=== PATIENT | male | born 1995 | race Two or more races ===

== ENCOUNTER 2017-11-02 19:26 | Emergency (ER) | payer MEDICAID ==
[~2017-11-02] VITALS: Ht 167.6 cm; Wt 49.9 kg
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
--- NOTE | 2017-11-02 20:35 | NUR ---
CALLED (PCP), TRANSFERRED CALL TO .
--- NOTE | 2017-11-02 20:38 | NUR ---
MARYBETH PENA, REY PULLIAM NP RAILROAD MECHANIC
--- NOTE | 2017-11-02 20:38 | NUR ---
PER DR. NUNO GIVE PT TO [facility]
--- NOTE | 2017-11-02 20:50 | NUR ---
PT REFUSED IV INSERTION AND/OR BLOOD DRAW. MADE AWARE.
--- NOTE | 2017-11-02 20:56 | NUR ---
TELE 308-2 FOR PNEUMOTHORAX, REY PULLIAM PROCESS IMPROVEMENT SPECIALIST ADMITTING
[2017-11-02] MEDS ORDERED: ONDANSETRON HCL/PF 4 MG/2 ML VIAL IVP PRN (21:00)
[2017-11-02] MEDS ORDERED: ACETAMINOPHEN 325 MG TABLET PO PRN (21:00)
[2017-11-02] MEDS ORDERED: HYDROCODONE/APAP 5/325MG 1 EACH TABLET PO PRN (21:00)
[2017-11-02 21:36] VITALS: BP 103/63
--- NOTE | 2017-11-02 21:58 | NUR ---
Patient does not wish to proceed with medical care recommended by Dr. Owens. Patient given information related to possible complications, up to and including , which could occur as a result of leaving the hospital at this time. Patient verbalizes understanding of risks involved due to leaving against medical advice. Patient has signed AMA form.
[2017-11-03] MEDS ORDERED: PANTOPRAZOLE 40 MG TABLET.DR PO SCH (09:00)
== END 2017-11-02 22:00 | disposition left against medical advice (07) ==
LOC: ER 19:30
DX: J93.83 Other pneumothorax (principal)
CPT/HCPCS: 71045-TC; A4606; Z7610

== ENCOUNTER 2017-11-15 23:20 | Emergency (ER) | payer MEDICAID ==
[~2017-11-15] VITALS: Ht 170.2 cm; Wt 49.0 kg
[2017-11-15 23:32] VITALS: BP 113/85
[2017-11-15] MEDS ORDERED: NYSTATIN (PYXIS) 500,000 UNIT/5 ML ORAL.SUSP PO STA (23:53)
[2017-11-16] MEDS ORDERED: NYSTATIN (PYXIS) 500,000 UNIT/5 ML ORAL.SUSP ONE (00:22)
--- NOTE | 2017-11-16 00:28 | NUR ---
RECEIVED MED FROM [facility] TO ADMINISTER IN ER PER MD'S ORDERS. PT HAS REFUSED ALL OTHER TREATMENTS OFFERED BY ER MD. PT ONLY OKAY WITH BEING TREATED FOR ORAL PAIN. AWARE.
== END 2017-11-16 00:31 | disposition home or self-care (01) ==
LOC: ER 23:22
DX: B37.0 Candidal stomatitis (principal); R55 Syncope and collapse; G89.18 Other acute postprocedural pain; Z98.890 Other specified postprocedural states
CPT/HCPCS: A4606; Z7610

== ENCOUNTER 2018-08-05 20:09 | Emergency (ER) | payer MEDICAID ==
[~2018-08-05] VITALS: Ht 167.6 cm; Wt 45.4 kg
[2018-08-05 20:37] VITALS: BP 132/82
[2018-08-05] MEDS ORDERED: LIDOCAINE /MPF 1% VIAL 5 ML VIAL IJ ONE (21:00)
[2018-08-05] MEDS ORDERED: LIDOCAINE /MPF 1% VIAL 5 ML VIAL ONE (21:01)
== END 2018-08-05 21:22 | disposition home or self-care (01) ==
LOC: ER 20:27
DX: L03.032 Cellulitis of left toe (principal); Z98.890 Other specified postprocedural states
CPT/HCPCS: 99283; A4606; A6402 ×2; Z7610; J3490

== ENCOUNTER 2018-09-09 02:01 | Emergency (ER) | payer MEDICAID, OTHER ==
[~2018-09-09] VITALS: Ht 167.6 cm; Wt 45.4 kg
[2018-09-09 02:13] VITALS: BP 144/66
[2018-09-09] MEDS ORDERED: HYDROCODONE/APAP 10/325MG 1 EA TABLET ONE ×2 (03:13→03:25)
[2018-09-09] MEDS ORDERED: ONDANSETRON 4 MG TAB.RAPDIS ONE (03:14)
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
[2018-09-09] MEDS ORDERED: ONDANSETRON 4 MG TAB.RAPDIS SL ONE (03:30)
[2018-09-09] MEDS ORDERED: HYDROCODONE/APAP 10/325MG 1 EA TABLET PO ONE (03:30)
--- NOTE | 2018-09-09 03:33 | NUR ---
PT MEDICATED ORDERED.
[2018-09-09] MEDS ORDERED: BACI/NEOM/POLY B OINT PKT 1 UDPKT PACKET TP ONE (04:00)
== END 2018-09-09 04:12 | disposition home or self-care (01) ==
LOC: ER 02:07
DX: G89.18 Other acute postprocedural pain (principal); Z98.890 Other specified postprocedural states
CPT/HCPCS: 99283; A4606; Q0162

== ENCOUNTER 2018-09-28 21:38 | Emergency (ER) | payer MEDICAID ==
[~2018-09-28] VITALS: Ht 167.6 cm; Wt 49.9 kg
--- NOTE | 2018-09-28 22:18 | NUR ---
BIBSELF C/O LEFT SIDE CP X1 DAY. -N/V/D,-HEADACHE,-SOB. HAD SIMILAR EXPERIENCE PREVIOUSLY. AOX4, AMB, VSS, RR EVEN AND UNLABORED ON RA. SKIN WARM, DRY, INTACT. NO ACUTE DISTRESS NOTED. FAMILY AT BEDSIDE. READY FOR EVAL.
--- NOTE | 2018-09-28 23:57 | NUR ---
CALLED [facility] TO HAVE XRAY READ
--- NOTE | 2018-09-29 01:05 | NUR ---
Patient discharged to home in stable condition. Written and verbal after care instructions given. Patient verbalizes understanding of instruction. Pt ambulatory with a steady gait
[2018-09-29 01:11] VITALS: BP 114/82
== END 2018-09-29 01:11 | disposition home or self-care (01) ==
LOC: ER 21:40
DX: R07.89 Other chest pain (principal); Z98.890 Other specified postprocedural states; Z87.891 Personal history of nicotine dependence
CPT/HCPCS: 71046

== ENCOUNTER 2023-05-05 13:20 | Emergency (ER) | payer MEDICAID ==
[~2023-05-05] VITALS: Ht 167.6 cm; Wt 53.1 kg
[2023-05-05 14:56] LABS: BASOPHILS % (AUTO) 0.4 % (0.0-2.0); EOSINOPHILS % (AUTO) 0.2 % (0.0-6.0); HEMATOCRIT 44 % (39-51); HEMOGLOBIN 14.8 g/dL (13.5-17.5); LYMPHOCYTES % (AUTO) 23.1 % (20.0-44.0); MEAN CORPUSCULAR HEMOGLOBIN 28 PG (26.0-33.0); MEAN CORPUSCULAR HGB CONC 34 g/dl (31.0-36.0); MEAN CORPUSCULAR VOLUME 84 fL (80-96); MONOCYTES # (AUTO) 0.5 K/uL (0.1-1.30); MONOCYTES % (AUTO) 5.5 % (2.0-12.0); NEUTROPHILS # (AUTO) 6.2 K/uL (1.8-8.9); NEUTROPHILS % (AUTO) 70.8 % (43.0-81.0); PLATELET COUNT (AUTO) 259 K/uL (150-450); RED BLOOD CELL COUNT(AUTO) 5.27 MIL/uL (4.5-6.0); RED CELL DISTRIBUTION WIDTH 12.9 % (11.5-15.0); WHITE BLOOD COUNT (AUTO) 8.8 K/uL (4.3-11.0)
[2023-05-05 15:03] LABS: CALCIUM, SERUM 9.2 mg/dL (8.5-10.1); CARBON DIOXIDE 26 mmol/L (21-32); CHLORIDE 101 mmol/L (98-107); CREATININE 1.2 mg/dL (0.6-1.3); GLUCOSE 92 mg/dL (74-106); POTASSIUM 3.7 mmol/L (3.5-5.1); SODIUM SERUM 137 mmol/L (136-145); UREA NITROGEN, BLOOD 13 mg/dL (7-18)
[2023-05-05 16:24] VITALS: BP 122/78; TEMP 98.2; O2SAT 98
== END 2023-05-05 16:25 | disposition home or self-care (01) ==
LOC: ER 13:24
DX: R07.89 Other chest pain (principal); Z98.890 Other specified postprocedural states
CPT/HCPCS: 36415; 71045-TC; 80048-TC; 84484-TC; 85025-TC

== ENCOUNTER 2023-10-28 23:49 | Emergency (ER) | payer MEDICAID ==
[~2023-10-28] VITALS: Ht 167.6 cm; Wt 45.4 kg
[2023-10-29 01:18] LABS: BASOPHILS # (AUTO) 0.1 K/uL (0.0-0.2); BASOPHILS % (AUTO) 0.6 % (0.0-2.0); EOSINOPHILS # (AUTO) 0.1 K/uL (0.0-0.7); EOSINOPHILS % (AUTO) 0.6 % (0.0-6.0); HEMATOCRIT 45 % (39-51); HEMOGLOBIN 14.8 g/dL (13.5-17.5); MEAN CORPUSCULAR HEMOGLOBIN 28 PG (26.0-33.0); MEAN CORPUSCULAR HGB CONC 33 g/dl (31.0-36.0); MEAN CORPUSCULAR VOLUME 85 fL (80-96); MONOCYTES # (AUTO) 0.6 K/uL (0.1-1.30); MONOCYTES % (AUTO) 5.6 % (2.0-12.0); NEUTROPHILS # (AUTO) 6.3 K/uL (1.8-8.9); NEUTROPHILS % (AUTO) 63.2 % (43.0-81.0); PLATELET COUNT (AUTO) 337 K/uL (150-450); RED BLOOD CELL COUNT(AUTO) 5.26 MIL/uL (4.5-6.0); RED CELL DISTRIBUTION WIDTH 13.4 % (11.5-15.0)
[2023-10-29 01:36] LABS: CALCIUM, SERUM 9.4 mg/dL (8.5-10.1); CARBON DIOXIDE 29 mmol/L (21-32); CHLORIDE 103 mmol/L (98-107); CREATININE 1.2 mg/dL (0.6-1.3); GLUCOSE 85 mg/dL (74-106); POTASSIUM 3.9 mmol/L (3.5-5.1); SODIUM SERUM 138 mmol/L (136-145); UREA NITROGEN, BLOOD 14 mg/dL (7-18)
[2023-10-29 01:46] LABS: ALANINE AMINOTRANSFERASE 28 U/L (12-78); ALBUMIN 4.3 g/dL (3.4-5.0); ALKALINE PHOSPHATASE 58 U/L (46-116); ASPARTATE AMINOTRANSFERASE 17 U/L (15-37); BILIRUBIN,DIRECT 0.1 mg/dL (0.0-0.2); BILIRUBIN,TOTAL 0.4 mg/dL (0.2-1.0); TOTAL PROTEIN, SERUM 8.2 g/dL (6.4-8.2)
[2023-10-29 01:57] LABS: INR 0.97 (0.91-1.10); PARTIAL THROMBOPLASTIN TIME 23.3 SEC (24.3-34.3); PROTHROMBIN TIME 10.3 SECS (9.2-11.1)
[2023-10-29 03:08] VITALS: BP 113/66; TEMP 98.1; O2SAT 100
== END 2023-10-29 05:47 | disposition home or self-care (01) ==
LOC: ER 23:50
DX: R07.9 Chest pain, unspecified (principal); Z87.09 Personal history of other diseases of the respiratory system
CPT/HCPCS: 36415; 71045-TC; 80048-TC; 80076-TC; 84484-TC; 85025-TC; 85730-TC

== ENCOUNTER 2023-12-22 22:04 | Emergency (ER) | payer MEDICAID ==
[~2023-12-22] VITALS: Ht 167.6 cm; Wt 59.0 kg
[2023-12-22 23:16] VITALS: BP 140/87; TEMP 98.8
[2023-12-23] MEDS ORDERED: KETO10TA2 PO
[2023-12-23 00:22] VITALS: O2SAT 99
== END 2023-12-23 00:23 | disposition home or self-care (01) ==
LOC: ER 22:05
DX: R09.1 Pleurisy (principal)
CPT/HCPCS: 71100-TC

== ENCOUNTER 2024-01-21 19:55 | Emergency (ER) | payer MEDICAID ==
[~2024-01-21] VITALS: Ht 167.6 cm; Wt 47.6 kg
[~2024-01-21 19:55] MED LIST: KETO10TA2 PO
[2024-01-21 21:24] VITALS: BP 125/75; TEMP 98; O2SAT 98
== END 2024-01-21 22:02 | disposition home or self-care (01) ==
LOC: ER 20:07
DX: R07.9 Chest pain, unspecified (principal); Z87.891 Personal history of nicotine dependence
CPT/HCPCS: 71045-TC

== ENCOUNTER 2024-02-06 19:13 | Emergency (ER) | payer MEDICAID ==
[~2024-02-06] VITALS: Ht 167.6 cm; Wt 45.4 kg
[2024-02-06 22:35] VITALS: BP 128/76; TEMP 98.5; O2SAT 98
== END 2024-02-06 22:36 | disposition home or self-care (01) ==
LOC: ER 19:18
DX: R07.89 Other chest pain (principal); Z98.890 Other specified postprocedural states; Z79.899 Other long term (current) drug therapy
CPT/HCPCS: 71045-TC